=== PATIENT | female | born 1930 | race African-American/Black ===

== ENCOUNTER 2018-06-01 16:17 | Inpatient (IN) | payer MEDICARE, MEDICAID ==
[~2018-06-01] VITALS: Ht 165.1 cm; Wt 102.3 kg
[~2018-06-01 16:17] MED LIST: ACET-1465 PO; ACET-2178 PO; ALBUTEROL; AMLO10TA80 PO; ATOR20TA PO; ATRO0.05 IJ; FOLI-43 PO; GABA-531 PO; GUAI473S55 PO; LISI40TA4 PO; METO-539 PO; VITAMIN D
[2018-06-01] MEDS ORDERED: ONDANSETRON HCL 4MG/2ML INJ IV STA (16:42)
[2018-06-01] MEDS ORDERED: KETOROLAC 30MG/ML VIAL IV STA (16:42)
[2018-06-01] MEDS ORDERED: LEVE250T2 MT (17:05)
[2018-06-01] MEDS ORDERED: ALLO100T MT (17:05)
[2018-06-01] MEDS ORDERED: AMLO5TAB88 MT (17:05)
[2018-06-01 18:10] LABS: BASOPHILS % 0.6 % (0.0-2.0); CHLORIDE 109 mEq/L (98-107); EOSINOPHILS % 0.1 % (0.0-5.0); HEMATOCRIT. 44.3 % (36.0-48.0); HEMOGLOBIN. 14.4 g/dL (12.0-16.0); LYMPHOCYTES % 15.8 % (20.0-50.0); MEAN CORPUSCULAR HEMOGLOBIN 27.5 pg (28.0-32.0); MEAN CORPUSCULAR VOLUME 84.8 fL (81.0-99.0); MEAN PLATELET VOLUME 9.8 fl (7.4-10.4); MONOCYTES % 6.1 % (2.0-8.0); NEUTROPHILS % 77.4 % (40.0-76.0); PLATELET 200 x1000/uL (130-400); RED BLOOD CELL COUNT 5.22 mill/uL (4.2-5.4); RED CELL DISTRIBUTION WIDTH 16.2 % (11.6-14.6)
[2018-06-01 18:34] LABS: PARTIAL THROMBOPLASTIN TIME 27.5 sec (23.4-31.0); PROTHROMBIN TIME 10.1 sec (9.1-11.1)
[2018-06-01 23:15] VITALS: BP 148/61
[2018-06-01 23:30] VITALS: BP 148/61
[2018-06-02] MEDS ORDERED: MEDICATION NOT ON FORMULARY EA (Metoprolol Tartrate 1 TAB) PO SCH (00:30)
[2018-06-02] MEDS ORDERED: ONDANSETRON HCL 4MG/2ML INJ IV PRN (00:30)
[2018-06-02] MEDS ORDERED: ACETAMINOPHEN 325MG TABLET PO PRN ×2 (00:30→16:45)
[2018-06-02 04:00] VITALS: BP 127/51
[2018-06-02] MEDS ORDERED: MEDICATION NOT ON FORMULARY EA (Allopurinol 1 TAB) MT SCH (09:00)
[2018-06-02] MEDS ORDERED: MEDICATION NOT ON FORMULARY EA (Folic Acid 1 TAB) PO SCH (09:00)
[2018-06-02] MEDS ORDERED: MEDICATION NOT ON FORMULARY EA (Gabapentin 1 CAP) PO SCH (09:00)
[2018-06-02] MEDS ORDERED: AMLODIPINE 10MG TABLET PO SCH (09:00)
[2018-06-02] MEDS ORDERED: MEDICATION NOT ON FORMULARY EA (Amlodipine Besylate 1 TAB) MT SCH (09:00)
[2018-06-02] MEDS: GABAPENTIN 300MG CAPSULE PO SCH (09:34)
[2018-06-02] MEDS: FOLIC ACID 1MG TABLET PO SCH (09:35)
[2018-06-02] MEDS: LISINOPRIL 40MG TABLET PO SCH (09:36)
[2018-06-02] MEDS: LEVETIRACETAM 250MG TABLET PO SCH (09:36)
[2018-06-02] MEDS: METOPROLOL TARTRATE 50MG TABLET PO SCH ×2 (09:38→21:00)
[2018-06-02] MEDS: ALLOPURINOL 100 MG TABLET PO SCH (10:01)
[2018-06-02 12:10] VITALS: BP 132/49
[2018-06-02 16:11] VITALS: BP 102/53
[2018-06-02 20:00] VITALS: BP 125/48
[2018-06-02] MEDS: ATORVASTATIN CALCIUM 20MG TABLET PO SCH (21:00)
[2018-06-02] MEDS: AMLODIPINE 5MG TABLET PO SCH (21:00)
[2018-06-03] VITALS: BP 116/45
[2018-06-03 06:51] LABS: BASOPHILS % 0.3 % (0.0-2.0); EOSINOPHILS % 4.5 % (0.0-5.0); HEMATOCRIT. 37.7 % (36.0-48.0); HEMOGLOBIN. 12.4 g/dL (12.0-16.0); LYMPHOCYTES % 37.4 % (20.0-50.0); MEAN CORPUSCULAR VOLUME 85.2 fL (81.0-99.0); MEAN PLATELET VOLUME 9.9 fl (7.4-10.4); MONOCYTES % 8.4 % (2.0-8.0); NEUTROPHILS % 49.4 % (40.0-76.0); PLATELET 202 x1000/uL (130-400); RED BLOOD CELL COUNT 4.42 mill/uL (4.2-5.4); RED CELL DISTRIBUTION WIDTH 15.8 % (11.6-14.6)
[2018-06-03 08:00] VITALS: BP 101/96
[2018-06-03] MEDS: METOPROLOL TARTRATE 50MG TABLET PO SCH ×2 (09:00→20:52)
[2018-06-03] MEDS: AMLODIPINE 5MG TABLET PO SCH ×2 (09:00→20:53)
[2018-06-03] MEDS: LISINOPRIL 40MG TABLET PO SCH (09:00)
[2018-06-03] MEDS: ALLOPURINOL 100 MG TABLET PO SCH (09:44)
[2018-06-03] MEDS: FOLIC ACID 1MG TABLET PO SCH (09:44)
[2018-06-03] MEDS: LEVETIRACETAM 250MG TABLET PO SCH ×2 (09:44→17:30)
[2018-06-03] MEDS: GABAPENTIN 300MG CAPSULE PO SCH ×3 (09:44→17:30)
[2018-06-03] MEDS: ENOXAPARIN 40MG/0.4ML SYR SUBCUT SCH (09:47)
[2018-06-03 12:00] VITALS: BP 108/51
[2018-06-03] MEDS: TRAMADOL 50MG TABLET PO PRN (14:07)
[2018-06-03] MEDS: SODIUM CHLORIDE 0.45% 1,000 ML IV SCH (14:07)
[2018-06-03 16:00] VITALS: BP 109/59
[2018-06-03 20:00] VITALS: BP 109/39
[2018-06-03] MEDS: ATORVASTATIN CALCIUM 20MG TABLET PO SCH (20:54)
[2018-06-04] VITALS: BP 146/50
[2018-06-04] MEDS: SODIUM CHLORIDE 0.45% 1,000 ML IV SCH ×2 (01:57→15:07)
[2018-06-04 04:00] VITALS: BP 130/49
[2018-06-04 07:14] LABS: BASOPHILS % 0.2 % (0.0-2.0); EOSINOPHILS % 4.4 % (0.0-5.0); HEMATOCRIT. 37.1 % (36.0-48.0); HEMOGLOBIN. 11.9 g/dL (12.0-16.0); LYMPHOCYTES % 21.7 % (20.0-50.0); MEAN CORPUSCULAR HEMOGLOBIN 27.3 pg (28.0-32.0); MEAN CORPUSCULAR VOLUME 84.9 fL (81.0-99.0); MEAN PLATELET VOLUME 9.5 fl (7.4-10.4); MONOCYTES % 10.4 % (2.0-8.0); NEUTROPHILS % 63.3 % (40.0-76.0); PLATELET 204 x1000/uL (130-400); RED BLOOD CELL COUNT 4.37 mill/uL (4.2-5.4); RED CELL DISTRIBUTION WIDTH 15.3 % (11.6-14.6)
[2018-06-04 08:00] VITALS: BP 106/58
[2018-06-04] MEDS: METOPROLOL TARTRATE 50MG TABLET PO SCH ×2 (09:00→20:50)
[2018-06-04] MEDS: AMLODIPINE 5MG TABLET PO SCH ×2 (09:00→20:51)
[2018-06-04] MEDS: GABAPENTIN 300MG CAPSULE PO SCH ×3 (09:34→17:39)
[2018-06-04] MEDS: LEVETIRACETAM 250MG TABLET PO SCH ×2 (09:34→17:39)
[2018-06-04] MEDS: FOLIC ACID 1MG TABLET PO SCH (09:34)
[2018-06-04] MEDS: ALLOPURINOL 100 MG TABLET PO SCH (09:34)
[2018-06-04 12:00] VITALS: BP 110/72
[2018-06-04 12:40] LABS: CLARITY URINE CLOUDY (CLEAR); COLOR URINE DARK YELLOW (YELLOW); KETONES URINE NEGATIVE (NEGATIVE); LEUKOCYTE ESTERASE URINE 3+ (NEGATIVE); NITRITE URINE NEGATIVE (NEGATIVE); OCCULT BLOOD URINE 2+ (NEGATIVE); PROTEIN URINE NEGATIVE (NEGATIVE); SPECIFIC GRAVITY URINE 1.018 (1.005-1.030)
[2018-06-04] MEDS ORDERED: LEVOFLOXACIN 250MG PREMIX 50 ML IV SCH (15:00)
[2018-06-04] MEDS: BENZONATATE 100MG CAPSULE PO PRN (15:07)
[2018-06-04] MEDS: TRAMADOL 50MG TABLET PO PRN ×2 (15:07→20:55)
[2018-06-04 16:00] VITALS: BP 141/56
[2018-06-04] MEDS: ENOXAPARIN 40MG/0.4ML SYR SUBCUT SCH (17:39)
[2018-06-04 20:00] VITALS: BP 133/42
[2018-06-04] MEDS: GUAIFENESIN 600MG ER TABLET PO SCH (20:55)
[2018-06-04] MEDS: ATORVASTATIN CALCIUM 20MG TABLET PO SCH (20:55)
[2018-06-05] VITALS: BP 150/42
[2018-06-05 04:00] VITALS: BP 144/46
[2018-06-05] MEDS: SODIUM CHLORIDE 0.45% 1,000 ML IV SCH (06:01)
[2018-06-05 08:00] VITALS: BP_SYST 148; BP_SYST 172; BP_DIAS 60; BP_DIAS 68
[2018-06-05] MEDS: LEVETIRACETAM 250MG TABLET PO SCH ×2 (09:27→18:21)
[2018-06-05] MEDS: FOLIC ACID 1MG TABLET PO SCH (09:27)
[2018-06-05] MEDS: AMLODIPINE 5MG TABLET PO SCH ×2 (09:29→20:22)
[2018-06-05] MEDS: METOPROLOL TARTRATE 50MG TABLET PO SCH ×2 (09:30→20:22)
[2018-06-05] MEDS: GABAPENTIN 300MG CAPSULE PO SCH ×3 (09:30→18:20)
[2018-06-05 12:00] VITALS: BP 148/60
[2018-06-05] MEDS: TRAMADOL 50MG TABLET PO PRN (13:53)
[2018-06-05] MEDS: BENZONATATE 100MG CAPSULE PO PRN (13:53)
[2018-06-05] MEDS: ALLOPURINOL 100 MG TABLET PO SCH (14:00)
[2018-06-05] MEDS: GUAIFENESIN 600MG ER TABLET PO SCH ×2 (14:15→20:22)
[2018-06-05] MEDS ORDERED: LEVOFLOXACIN 250MG PREMIX 50 ML IV SCH (15:00)
[2018-06-05 16:00] VITALS: BP 131/80
[2018-06-05 17:07] LABS: BASOPHILS % 0.7 % (0.0-2.0); EOSINOPHILS % 4.9 % (0.0-5.0); HEMATOCRIT. 39.1 % (36.0-48.0); HEMOGLOBIN. 12.5 g/dL (12.0-16.0); LYMPHOCYTES % 23.2 % (20.0-50.0); MEAN CORPUSCULAR HEMOGLOBIN 27.4 pg (28.0-32.0); MEAN CORPUSCULAR VOLUME 85.5 fL (81.0-99.0); MEAN PLATELET VOLUME 10.7 fl (7.4-10.4); MONOCYTES % 6.8 % (2.0-8.0); NEUTROPHILS % 64.4 % (40.0-76.0); PLATELET 234 x1000/uL (130-400); RED BLOOD CELL COUNT 4.57 mill/uL (4.2-5.4); RED CELL DISTRIBUTION WIDTH 15.5 % (11.6-14.6)
[2018-06-05] MEDS: LOSARTAN POTASSIUM 25 MG TABLET PO SCH (18:21)
[2018-06-05] MEDS: ENOXAPARIN 40MG/0.4ML SYR SUBCUT SCH (18:23)
[2018-06-05 20:00] VITALS: BP 184/70
[2018-06-05] MEDS: ATORVASTATIN CALCIUM 20MG TABLET PO SCH (20:21)
[2018-06-05] MEDS: CLONIDINE 0.1MG TABLET PO PRN (23:08)
[2018-06-06] VITALS: BP 138/67
[2018-06-06] MEDS: SODIUM CHLORIDE 0.45% 1,000 ML IV SCH (03:52)
[2018-06-06 04:00] VITALS: BP 153/69
[2018-06-06 08:00] VITALS: BP 180/71
[2018-06-06] MEDS: LEVETIRACETAM 250MG TABLET PO SCH ×2 (09:16→17:48)
[2018-06-06] MEDS: METOPROLOL TARTRATE 50MG TABLET PO SCH ×2 (09:16→20:57)
[2018-06-06] MEDS: GABAPENTIN 300MG CAPSULE PO SCH ×3 (09:16→17:48)
[2018-06-06] MEDS: LOSARTAN POTASSIUM 25 MG TABLET PO SCH (09:16)
[2018-06-06] MEDS: AMLODIPINE 5MG TABLET PO SCH ×2 (09:16→20:56)
[2018-06-06] MEDS: GUAIFENESIN 600MG ER TABLET PO SCH ×2 (09:16→20:56)
[2018-06-06] MEDS: ALLOPURINOL 100 MG TABLET PO SCH (09:17)
[2018-06-06] MEDS: FOLIC ACID 1MG TABLET PO SCH (09:17)
[2018-06-06] MEDS: LEVOFLOXACIN 250MG TABLET PO SCH (10:34)
[2018-06-06 12:00] VITALS: BP 170/73
[2018-06-06 12:03] LABS: HEMATOCRIT. 43.8 % (36.0-48.0); HEMOGLOBIN. 13.9 g/dL (12.0-16.0); MEAN CORPUSCULAR HEMOGLOBIN 27.4 pg (28.0-32.0); RED BLOOD CELL COUNT 5.09 mill/uL (4.2-5.4); RED CELL DISTRIBUTION WIDTH 15.5 % (11.6-14.6)
[2018-06-06 12:58] LABS: PLATELET ESTIMATE NORMAL
[2018-06-06 12:59] LABS: MEAN PLATELET VOLUME 9.8 fl (7.4-10.4)
[2018-06-06 13:00] LABS: PLATELET 187 x1000/uL (130-400)
[2018-06-06] MEDS: CLONIDINE 0.1MG TABLET PO PRN (13:29)
[2018-06-06 16:00] VITALS: BP 153/79
[2018-06-06] MEDS: ENOXAPARIN 30MG/0.3ML SYR SUBCUT SCH ×2 (17:49→17:59)
[2018-06-06 20:00] VITALS: BP 147/57
[2018-06-06] MEDS: ATORVASTATIN CALCIUM 20MG TABLET PO SCH (20:56)
[2018-06-06 21:32] LABS: VITAMIN B12 SERUM 213 pg/mL (211-911)
[2018-06-07] VITALS (7 sets, daily range): BP systolic 134–162; BP diastolic 44–91
[2018-06-07] MEDS: ENOXAPARIN 30MG/0.3ML SYR SUBCUT SCH ×2 (05:27→17:55)
[2018-06-07] MEDS ORDERED: LOSARTAN POTASSIUM 25 MG TABLET PO SCH (09:00)
[2018-06-07] MEDS: LEVETIRACETAM 250MG TABLET PO SCH ×2 (09:17→17:55)
[2018-06-07] MEDS: GUAIFENESIN 600MG ER TABLET PO SCH ×2 (09:17→20:55)
[2018-06-07] MEDS: METOPROLOL TARTRATE 50MG TABLET PO SCH ×2 (09:17→20:55)
[2018-06-07] MEDS: AMLODIPINE 5MG TABLET PO SCH ×2 (09:17→20:55)
[2018-06-07] MEDS: GABAPENTIN 300MG CAPSULE PO SCH ×3 (09:17→17:55)
[2018-06-07] MEDS: ALLOPURINOL 100 MG TABLET PO SCH (09:17)
[2018-06-07] MEDS: FOLIC ACID 1MG TABLET PO SCH (09:18)
[2018-06-07] MEDS: LEVOFLOXACIN 250MG TABLET PO SCH (10:48)
[2018-06-07] MEDS: TRAMADOL 50MG TABLET PO PRN (13:07)
[2018-06-07] MEDS: CLONIDINE 0.1MG TABLET PO PRN (13:07)
[2018-06-07] MEDS: ATORVASTATIN CALCIUM 20MG TABLET PO SCH (20:55)
[2018-06-08 09:08] LABS: COMPLEMENT C3 137 mg/dL (82-167)
[2018-06-09 04:18] LABS: ANTI-NUCLEAR ANTIBODIES DIRECT Positive (Negative)
== END 2018-06-07 21:22 | disposition home health service (06) | DRG 553 ==
LOC: ER 16:17 → 8WST 20:24 → EDBEDREQTM 20:31 → EDBEDREQSVC 20:31 → EDBEDREQ 20:31 → EDBEDREQTM 21:40 → ENRESERV 22:08
PROVIDERS: ADMIT Internal Medicine; ATTEND Internal Medicine
PROC: 0S9C3ZZ Drainage of Right Knee Joint, Percutaneous Approach (ICD-10-PCS; principal; 2018-06-07)
PROC: 0S9D3ZZ Drainage of Left Knee Joint, Percutaneous Approach (ICD-10-PCS; 2018-06-07)
PROC: 3E0U33Z Introduction of Anti-inflammatory into Joints, Percutaneous Approach (ICD-10-PCS; 2018-06-07)
PROC: 3E0U3BZ Introduction of Anesthetic Agent into Joints, Percutaneous Approach (ICD-10-PCS; 2018-06-07)
DX: M17.11 Unilateral primary osteoarthritis, right knee (principal); N17.0 Acute kidney failure with tubular necrosis; E44.0 Moderate protein-calorie malnutrition; I50.22 Chronic systolic (congestive) heart failure; N39.0 Urinary tract infection, site not specified; I13.0 Hypertensive heart and chronic kidney disease with heart failure and stage 1 through stage 4 chronic kidney disease, or unspecified chronic kidney disease; I42.9 Cardiomyopathy, unspecified; J98.11 Atelectasis; M62.82 Rhabdomyolysis; N17.9 Acute kidney failure, unspecified; M25.461 Effusion, right knee; S82.401A Unspecified fracture of shaft of right fibula, initial encounter for closed fracture; I27.20 Pulmonary hypertension, unspecified; E66.01 Morbid (severe) obesity due to excess calories; E78.5 Hyperlipidemia, unspecified; E87.8 Other disorders of electrolyte and fluid balance, not elsewhere classified; F03.90 Unspecified dementia, unspecified severity, without behavioral disturbance, psychotic disturbance, mood disturbance, and anxiety; F17.210 Nicotine dependence, cigarettes, uncomplicated; G40.909 Epilepsy, unspecified, not intractable, without status epilepticus; I25.10 Atherosclerotic heart disease of native coronary artery without angina pectoris; S89.81XA Other specified injuries of right lower leg, initial encounter; J44.9 Chronic obstructive pulmonary disease, unspecified; L89.150 Pressure ulcer of sacral region, unstageable; N18.3 Chronic kidney disease, stage 3 (moderate); M16.11 Unilateral primary osteoarthritis, right hip; W06.XXXA Fall from bed, initial encounter; Z68.37 Body mass index [BMI] 37.0-37.9, adult; Z79.899 Other long term (current) drug therapy; Z95.0 Presence of cardiac pacemaker; Y93.89 Activity, other specified; Y92.092 Bedroom in other non-institutional residence as the place of occurrence of the external cause; Y99.8 Other external cause status; Z88.5 Allergy status to narcotic agent; Z88.0 Allergy status to penicillin; R73.9 Hyperglycemia, unspecified; I08.3 Combined rheumatic disorders of mitral, aortic and tricuspid valves
CPT/HCPCS: 36415; 71045; 73562; 76770; 80048; 82542; 82550; 82607; 83880; 84443; 84484; 86038; 86160; 87077; 87186; 92610; 93005; 93306; 93880; 96374; 96375; 97162; 97166; 97530; 99285; A6261; J1650; J1885; J1956; J2405; L1830; A4315

== ENCOUNTER 2018-10-02 16:17 | Inpatient (IN) | payer MEDICARE, MEDICAID ==
[~2018-10-02] VITALS: Ht 170.2 cm; Wt 94.3 kg
[~2018-10-02 16:17] MED LIST changes: -ACET-2178 PO; +ALLO100T MT; +AMLO5TAB88 MT; -ATRO0.05 IJ; -GUAI473S55 PO; +LEVE250T2 MT
[2018-10-02] MEDS ORDERED: SODIUM CHLORIDE 0.9% 1000ML BAG (SEPSIS BOLUS) IV ONE (16:45)
[2018-10-02] MEDS ORDERED: LEVOFLOXACIN 750MG PREMIX 150 ML IV ONE (16:45)
[2018-10-02 17:46] LABS: CLARITY URINE TURBID (CLEAR); COLOR URINE DARK YELLOW (YELLOW); KETONES URINE TRACE (NEGATIVE); LEUKOCYTE ESTERASE URINE 3+ (NEGATIVE); NITRITE URINE NEGATIVE (NEGATIVE); OCCULT BLOOD URINE 3+ (NEGATIVE); PROTEIN URINE 2+ (NEGATIVE); SPECIFIC GRAVITY URINE 1.015 (1.005-1.030)
[2018-10-02 18:40] LABS: HEMATOCRIT. 44.4 % (36.0-48.0); HEMOGLOBIN. 14.2 g/dL (12.0-16.0); MEAN CORPUSCULAR HEMOGLOBIN 26.4 pg (28.0-32.0); MEAN CORPUSCULAR VOLUME 82.9 fL (81.0-99.0); MEAN PLATELET VOLUME 9.6 fl (7.4-10.4); PLATELET 211 x1000/uL (130-400); RED BLOOD CELL COUNT 5.36 mill/uL (4.2-5.4); RED CELL DISTRIBUTION WIDTH 16.3 % (11.6-14.6)
[2018-10-02 18:45] LABS: CHLORIDE 114 mEq/L (98-107)
[2018-10-02 18:47] LABS: INR 1.1; PARTIAL THROMBOPLASTIN TIME 34.8 sec (23.4-31.0); PROTHROMBIN TIME 11.1 sec (9.1-11.1)
[2018-10-02] MEDS ORDERED: ASPIRIN 81MG TABLET PO ONE (19:30)
[2018-10-02 20:15] LABS: PLATELET ESTIMATE NORMAL
[2018-10-02 23:30] VITALS: BP 118/44
[2018-10-03] VITALS: BP 118/44
[2018-10-03] MEDS ORDERED: MAGNESIUM/ALUMINUM HYDROXIDE/SIMETHICONE 30ML UDC PO PRN
[2018-10-03] MEDS ORDERED: GUAIFENESIN 200MG/10ML SUGAR FREE UDC PO PRN
[2018-10-03] MEDS ORDERED: IPRATROPIUM/ALBUTEROL 0.5-3(2.5)MG/3ML NEB INH PRN
[2018-10-03] MEDS ORDERED: DIPHENHYDRAMINE 50MG/ML VIAL IV PRN
[2018-10-03] MEDS ORDERED: ONDANSETRON HCL 4MG/2ML INJ IV PRN
[2018-10-03] MEDS ORDERED: NA PHOS,M-B/NA PHOS,DI-BA ENEMA 118ML PR PRN
[2018-10-03] MEDS ORDERED: ACETAMINOPHEN 650MG/20.3ML UDC GT PRN
[2018-10-03] MEDS ORDERED: ACETAMINOPHEN 325MG TABLET PO PRN
[2018-10-03] MEDS ORDERED: DOCUSATE SODIUM 100MG CAPSULE PO PRN
[2018-10-03] MEDS ORDERED: ACETAMINOPHEN 650MG SUPP PR PRN
[2018-10-03] MEDS ORDERED: LEVOFLOXACIN 500MG PREMIX 100 ML IV SCH
[2018-10-03] MEDS ORDERED: CLONIDINE 0.1MG TABLET PO PRN
[2018-10-03] MEDS ORDERED: AZITHROMYCIN 500 MG in DEXT 5% WATER 250 ML IV SCH ×2
[2018-10-03] MEDS ORDERED: LOSA25TA12 PO (01:09)
[2018-10-03] MEDS: IPRATROPIUM/ALBUTEROL 0.5-3(2.5)MG/3ML NEB INH SCH ×3 (02:15→21:18)
[2018-10-03 04:00] VITALS: BP 130/46
[2018-10-03] MEDS: AZITHROMYCIN 500 MG in DEXT 5% WATER 250 ML IV SCH (04:59)
[2018-10-03 06:25] LABS: HEMATOCRIT. 43.2 % (36.0-48.0); MEAN CORPUSCULAR HEMOGLOBIN 26.8 pg (28.0-32.0); MEAN CORPUSCULAR VOLUME 82.8 fL (81.0-99.0); MEAN PLATELET VOLUME 10.5 fl (7.4-10.4); PLATELET 193 x1000/uL (130-400); RED BLOOD CELL COUNT 5.21 mill/uL (4.2-5.4); RED CELL DISTRIBUTION WIDTH 16.2 % (11.6-14.6)
[2018-10-03] MEDS: SODIUM CHLORIDE 0.9% INJ 3ML FLUSH IVF SCH ×3 (06:26→21:13)
[2018-10-03 06:51] LABS: CHLORIDE 113 mEq/L (98-107)
[2018-10-03 07:01] LABS: LDL CHOLESTEROL 49 mg/dL (5-100)
[2018-10-03 07:03] LABS: HDL CHOLESTEROL 19 mg/dL (40-59)
[2018-10-03 08:00] VITALS: BP 117/55
[2018-10-03] MEDS: ENOXAPARIN 30MG/0.3ML SYR SUBCUT SCH (09:55)
[2018-10-03 10:24] LABS: *AMPHETAMINES SCREEN URINE NEGATIVE (NEGATIVE); *BARBITURATES SCREEN URINE NEGATIVE (NEGATIVE); *BENZODIAZEPINES SCREEN URINE NEGATIVE (NEGATIVE); *COCAINE SCREEN URINE NEGATIVE (NEGATIVE); CANNABINOID URINE SCREEN NEGATIVE (NEGATIVE); METHADONE URINE SCREEN NEGATIVE (NEGATIVE); OPIATES URINE SCREEN NEGATIVE (NEGATIVE); PHENCYCLIDINE URINE SCREEN NEGATIVE (NEGATIVE)
[2018-10-03 12:00] VITALS: BP 124/55
[2018-10-03 16:00] VITALS: BP 110/52
[2018-10-03] MEDS: LEVOFLOXACIN 250MG PREMIX 50 ML IV SCH (16:08)
[2018-10-03 20:00] VITALS: BP 133/61
[2018-10-03] MEDS ORDERED: MEDICATION NOT ON FORMULARY EA (Allopurinol 1 TAB) MT SCH (21:45)
[2018-10-03] MEDS ORDERED: MEDICATION NOT ON FORMULARY EA (Gabapentin 1 CAP) PO SCH (21:45)
[2018-10-03] MEDS ORDERED: MEDICATION NOT ON FORMULARY EA (Folic Acid 1 TAB) PO SCH (21:45)
[2018-10-04] VITALS (7 sets, daily range): BP systolic 109–141; BP diastolic 40–80
[2018-10-04] MEDS: SODIUM CHLORIDE 0.9% 1,000 ML IV SCH ×2 (00:03→11:05)
[2018-10-04] MEDS: FOLIC ACID 1MG TABLET PO SCH ×2 (00:04→09:22)
[2018-10-04] MEDS: ALLOPURINOL 100 MG TABLET PO SCH ×2 (00:04→09:22)
[2018-10-04] MEDS: ATORVASTATIN CALCIUM 20MG TABLET PO SCH ×2 (00:04→21:12)
[2018-10-04] MEDS: LEVETIRACETAM 250MG TABLET PO SCH ×3 (00:04→17:00)
[2018-10-04] MEDS: GABAPENTIN 300MG CAPSULE PO SCH ×4 (00:04→17:00)
[2018-10-04] MEDS: AZITHROMYCIN 500 MG in DEXT 5% WATER 250 ML IV SCH (06:15)
[2018-10-04] MEDS: SODIUM CHLORIDE 0.9% INJ 3ML FLUSH IVF SCH ×3 (06:15→21:12)
[2018-10-04 06:48] LABS: BASOPHILS % 0.1 % (0.0-2.0); HEMATOCRIT. 36.3 % (36.0-48.0); HEMOGLOBIN. 11.6 g/dL (12.0-16.0); LYMPHOCYTES % 14.9 % (20.0-50.0); MEAN CORPUSCULAR HEMOGLOBIN 26.4 pg (28.0-32.0); MEAN CORPUSCULAR VOLUME 82.5 fL (81.0-99.0); MEAN PLATELET VOLUME 9.9 fl (7.4-10.4); MONOCYTES % 8.1 % (2.0-8.0); NEUTROPHILS % 76.9 % (40.0-76.0); PLATELET 208 x1000/uL (130-400)
[2018-10-04] MEDS: ENOXAPARIN 30MG/0.3ML SYR SUBCUT SCH (09:21)
[2018-10-04] MEDS: IPRATROPIUM/ALBUTEROL 0.5-3(2.5)MG/3ML NEB INH SCH ×3 (10:01→20:46)
[2018-10-04] MEDS ORDERED: LEVO500T2 MT (15:23)
[2018-10-04] MEDS: LEVOFLOXACIN 250MG PREMIX 50 ML IV SCH (16:57)
[2018-10-04 17:44] LABS: PLATELET ESTIMATE NORMAL
[2018-10-05] VITALS: BP 128/48
[2018-10-05] MEDS: IPRATROPIUM/ALBUTEROL 0.5-3(2.5)MG/3ML NEB INH SCH ×4 (01:04→20:17)
[2018-10-05] MEDS: SODIUM CHLORIDE 0.9% 1,000 ML IV SCH ×2 (01:47→21:17)
[2018-10-05 04:00] VITALS: BP 130/57
[2018-10-05] MEDS: AZITHROMYCIN 500 MG in DEXT 5% WATER 250 ML IV SCH (06:15)
[2018-10-05] MEDS: SODIUM CHLORIDE 0.9% INJ 3ML FLUSH IVF SCH ×3 (06:15→21:16)
[2018-10-05 06:49] LABS: HEMATOCRIT. 36.7 % (36.0-48.0); HEMOGLOBIN. 11.6 g/dL (12.0-16.0); MEAN CORPUSCULAR HEMOGLOBIN 26.3 pg (28.0-32.0); MEAN CORPUSCULAR VOLUME 83.3 fL (81.0-99.0); MEAN PLATELET VOLUME 9.6 fl (7.4-10.4); PLATELET 234 x1000/uL (130-400); RED BLOOD CELL COUNT 4.41 mill/uL (4.2-5.4); RED CELL DISTRIBUTION WIDTH 16.7 % (11.6-14.6)
[2018-10-05 08:30] VITALS: BP 122/64
[2018-10-05] MEDS: LEVETIRACETAM 250MG TABLET PO SCH ×2 (09:09→16:08)
[2018-10-05] MEDS: ALLOPURINOL 100 MG TABLET PO SCH (09:09)
[2018-10-05] MEDS: GABAPENTIN 300MG CAPSULE PO SCH ×3 (09:09→16:08)
[2018-10-05] MEDS: FOLIC ACID 1MG TABLET PO SCH (09:09)
[2018-10-05] MEDS: ENOXAPARIN 30MG/0.3ML SYR SUBCUT SCH (09:10)
[2018-10-05 12:00] VITALS: BP 121/59
[2018-10-05 13:15] LABS: NUCLEATED RED BLOOD CELLS 1 /100 WBC; PLATELET ESTIMATE NORMAL
[2018-10-05 13:38] LABS: CREATINE KINASE 179 IU/L (26-192)
[2018-10-05] MEDS: CITRIC ACID/SODIUM CITRATE SOLN 15ML UDC PO SCH ×2 (13:46→21:16)
[2018-10-05 14:59] LABS: BG BASE EXCESS -4.2 mmol/L (-2.0-2.0); BG CARBOXYHEMOGLOBIN 0.7 % (0.5-1.5); BG DEOXYHEMOGLOBIN 11.4 % (0.0-5.0); BG HCO3 ACT 19.8 mmol/L (22.0-26.0); BG METHEMOGLOBIN 0.1 % (0.0-1.5); BG OXYGEN SATURATION 88.5 % (92.0-98.5); BG OXYHEMOGLOBIN 87.8 % (94.0-97.0); BG PCO2 32.7 mmHg (35.0-45.0); BG PH 7.399 (7.350-7.450); BG PO2 54.8 mmHg (75.0-100.0); BG SAMPLE SITE RIGHT BRACHIAL; BG TOTAL HEMOGLOBIN 12.3 g/dL (12.0-18.0); BG VENT MODE ROOM AIR
[2018-10-05] MEDS: LEVOFLOXACIN 250MG PREMIX 50 ML IV SCH (15:58)
[2018-10-05 16:00] VITALS: BP 122/59
[2018-10-05 20:00] VITALS: BP 131/55
[2018-10-05] MEDS: ATORVASTATIN CALCIUM 20MG TABLET PO SCH (21:17)
[2018-10-06] VITALS: BP 119/45
[2018-10-06] MEDS: IPRATROPIUM/ALBUTEROL 0.5-3(2.5)MG/3ML NEB INH SCH ×3 (00:48→20:12)
[2018-10-06 04:00] VITALS: BP 124/59
[2018-10-06] MEDS: SODIUM CHLORIDE 0.9% INJ 3ML FLUSH IVF SCH ×3 (06:00→21:23)
[2018-10-06] MEDS: CITRIC ACID/SODIUM CITRATE SOLN 15ML UDC PO SCH ×3 (06:00→21:22)
[2018-10-06 07:16] LABS: HEMATOCRIT. 34.4 % (36.0-48.0); HEMOGLOBIN. 11.2 g/dL (12.0-16.0); MEAN CORPUSCULAR HEMOGLOBIN 26.8 pg (28.0-32.0); MEAN CORPUSCULAR VOLUME 82.2 fL (81.0-99.0); MEAN PLATELET VOLUME 9.5 fl (7.4-10.4); PLATELET 264 x1000/uL (130-400); RED BLOOD CELL COUNT 4.19 mill/uL (4.2-5.4); RED CELL DISTRIBUTION WIDTH 15.9 % (11.6-14.6)
[2018-10-06 08:00] VITALS: BP 103/55
[2018-10-06] MEDS: ALLOPURINOL 100 MG TABLET PO SCH (09:45)
[2018-10-06] MEDS: LEVETIRACETAM 250MG TABLET PO SCH ×2 (09:45→16:50)
[2018-10-06] MEDS: FOLIC ACID 1MG TABLET PO SCH (09:45)
[2018-10-06] MEDS: AZITHROMYCIN 500 MG TABLET PO SCH (09:45)
[2018-10-06] MEDS: GABAPENTIN 300MG CAPSULE PO SCH ×3 (09:45→16:50)
[2018-10-06] MEDS: ENOXAPARIN 30MG/0.3ML SYR SUBCUT SCH (09:46)
[2018-10-06 12:00] VITALS: BP 147/55
[2018-10-06 13:33] LABS: PLATELET ESTIMATE NORMAL
[2018-10-06] MEDS: SODIUM CHLORIDE 0.9% 1,000 ML IV SCH (14:14)
[2018-10-06 16:00] VITALS: BP 149/54
[2018-10-06] MEDS: LEVOFLOXACIN 250MG TABLET PO SCH (16:50)
[2018-10-06 18:27] LABS: HEMATOCRIT 35.8 % (36.0-48.0); HEMOGLOBIN 11.5 g/dL (12.0-16.0); MEAN CORPUSCULAR HEMOGLOBIN 26.5 pg (28.0-32.0); MEAN CORPUSCULAR VOLUME 82.7 fL (81.0-99.0); PLATELET 216 x1000/uL (130-400); RED BLOOD CELL COUNT 4.33 mill/uL (4.2-5.4); RED CELL DISTRIBUTION WIDTH 16.5 % (11.6-14.6)
[2018-10-06 20:00] VITALS: BP 149/43
[2018-10-06] MEDS: ATORVASTATIN CALCIUM 20MG TABLET PO SCH (21:22)
[2018-10-07] VITALS: BP 122/47
[2018-10-07] MEDS: SODIUM CHLORIDE 0.9% 1,000 ML IV SCH ×3 (00:46→21:43)
[2018-10-07] MEDS: IPRATROPIUM/ALBUTEROL 0.5-3(2.5)MG/3ML NEB INH SCH ×4 (01:59→21:27)
[2018-10-07 04:00] VITALS: BP 124/42
[2018-10-07] MEDS: CITRIC ACID/SODIUM CITRATE SOLN 15ML UDC PO SCH ×3 (06:35→21:43)
[2018-10-07] MEDS: SODIUM CHLORIDE 0.9% INJ 3ML FLUSH IVF SCH ×2 (06:35→14:07)
[2018-10-07 08:00] VITALS: BP 143/58
[2018-10-07] MEDS: FOLIC ACID 1MG TABLET PO SCH (09:16)
[2018-10-07] MEDS: AZITHROMYCIN 500 MG TABLET PO SCH (09:16)
[2018-10-07] MEDS: ENOXAPARIN 30MG/0.3ML SYR SUBCUT SCH (09:16)
[2018-10-07] MEDS: ALLOPURINOL 100 MG TABLET PO SCH (09:16)
[2018-10-07] MEDS: GABAPENTIN 300MG CAPSULE PO SCH ×3 (09:16→17:01)
[2018-10-07] MEDS: LEVETIRACETAM 250MG TABLET PO SCH ×2 (09:16→17:01)
[2018-10-07 12:00] VITALS: BP 118/58
[2018-10-07 16:00] VITALS: BP 140/61
[2018-10-07] MEDS: LEVOFLOXACIN 250MG TABLET PO SCH (17:01)
[2018-10-07] MEDS: ATORVASTATIN CALCIUM 20MG TABLET PO SCH (21:43)
[2018-10-08] VITALS: BP 143/52
[2018-10-08] MEDS: IPRATROPIUM/ALBUTEROL 0.5-3(2.5)MG/3ML NEB INH SCH ×4 (03:02→22:27)
[2018-10-08 04:00] VITALS: BP 136/59
[2018-10-08] MEDS: CITRIC ACID/SODIUM CITRATE SOLN 15ML UDC PO SCH ×3 (06:41→21:34)
[2018-10-08] MEDS: SODIUM CHLORIDE 0.9% INJ 3ML FLUSH IVF SCH ×4 (06:41→21:35)
[2018-10-08 06:48] LABS: HEMATOCRIT. 34.7 % (36.0-48.0); HEMOGLOBIN. 11.2 g/dL (12.0-16.0); MEAN CORPUSCULAR HEMOGLOBIN 26.5 pg (28.0-32.0); MEAN CORPUSCULAR VOLUME 82.4 fL (81.0-99.0); PLATELET 288 x1000/uL (130-400); RED BLOOD CELL COUNT 4.21 mill/uL (4.2-5.4); RED CELL DISTRIBUTION WIDTH 16.3 % (11.6-14.6)
[2018-10-08 08:00] VITALS: BP 150/52
[2018-10-08] MEDS: AZITHROMYCIN 500 MG TABLET PO SCH (09:24)
[2018-10-08] MEDS: GABAPENTIN 300MG CAPSULE PO SCH ×3 (09:24→18:19)
[2018-10-08] MEDS: LEVETIRACETAM 250MG TABLET PO SCH ×2 (09:24→18:19)
[2018-10-08] MEDS: ENOXAPARIN 30MG/0.3ML SYR SUBCUT SCH (09:24)
[2018-10-08] MEDS: ALLOPURINOL 100 MG TABLET PO SCH (09:24)
[2018-10-08] MEDS: FOLIC ACID 1MG TABLET PO SCH (09:24)
[2018-10-08] MEDS: SODIUM CHLORIDE 0.9% 1,000 ML IV SCH ×2 (09:24→20:06)
[2018-10-08 12:00] VITALS: BP 143/57
[2018-10-08 12:50] LABS: PLATELET ESTIMATE NORMAL
[2018-10-08 16:00] VITALS: BP 173/56
[2018-10-08] MEDS: LEVOFLOXACIN 250MG TABLET PO SCH (18:19)
[2018-10-08 20:00] VITALS: BP 157/54
[2018-10-08] MEDS: ATORVASTATIN CALCIUM 20MG TABLET PO SCH (21:34)
[2018-10-09] VITALS: BP 139/51
[2018-10-09 04:00] VITALS: BP 148/50
[2018-10-09] MEDS: SODIUM CHLORIDE 0.9% INJ 3ML FLUSH IVF SCH ×3 (06:46→21:29)
[2018-10-09] MEDS: CITRIC ACID/SODIUM CITRATE SOLN 15ML UDC PO SCH ×3 (06:46→21:29)
[2018-10-09 08:00] VITALS: BP 144/54
[2018-10-09] MEDS: IPRATROPIUM/ALBUTEROL 0.5-3(2.5)MG/3ML NEB INH SCH ×3 (08:36→20:29)
[2018-10-09] MEDS: LEVETIRACETAM 250MG TABLET PO SCH ×2 (09:24→17:51)
[2018-10-09] MEDS: GABAPENTIN 300MG CAPSULE PO SCH ×3 (09:24→17:51)
[2018-10-09] MEDS: ENOXAPARIN 40MG/0.4ML SYR SUBCUT SCH (09:24)
[2018-10-09] MEDS: FOLIC ACID 1MG TABLET PO SCH (09:24)
[2018-10-09] MEDS: AZITHROMYCIN 500 MG TABLET PO SCH (09:24)
[2018-10-09] MEDS: ALLOPURINOL 100 MG TABLET PO SCH (09:24)
[2018-10-09 12:00] VITALS: BP 145/63
[2018-10-09] MEDS: SODIUM CHLORIDE 0.9% 1,000 ML IV SCH (12:13)
[2018-10-09 14:37] LABS: BG BASE EXCESS -1.1 mmol/L (-2.0-2.0); BG CARBOXYHEMOGLOBIN 1.5 % (0.5-1.5); BG DEOXYHEMOGLOBIN 13.4 % (0.0-5.0); BG FRACTION INSPIRED OXYGEN 21; BG HCO3 ACT 21.2 mmol/L (22.0-26.0); BG METHEMOGLOBIN 0.3 % (0.0-1.5); BG OXYGEN SATURATION 86.4 % (92.0-98.5); BG OXYHEMOGLOBIN 84.8 % (94.0-97.0); BG PCO2 28.1 mmHg (35.0-45.0); BG PH 7.496 (7.350-7.450); BG PO2 49.9 mmHg (75.0-100.0); BG SAMPLE SITE RIGHT BRACHIAL; BG TOTAL HEMOGLOBIN 11.5 g/dL (12.0-18.0); BG VENT MODE ROOM AIR
[2018-10-09 16:00] VITALS: BP 144/60
[2018-10-09] MEDS: LEVOFLOXACIN 250MG TABLET PO SCH (17:51)
[2018-10-09 20:00] VITALS: BP 150/56
[2018-10-09] MEDS: ATORVASTATIN CALCIUM 20MG TABLET PO SCH (21:29)
[2018-10-10] VITALS: BP 137/56
[2018-10-10] MEDS: IPRATROPIUM/ALBUTEROL 0.5-3(2.5)MG/3ML NEB INH SCH ×4 (01:48→21:19)
[2018-10-10 04:00] VITALS: BP 123/47
[2018-10-10] MEDS: SODIUM CHLORIDE 0.9% INJ 3ML FLUSH IVF SCH ×3 (06:11→21:22)
[2018-10-10] MEDS: CITRIC ACID/SODIUM CITRATE SOLN 15ML UDC PO SCH ×3 (06:11→21:22)
[2018-10-10 06:34] LABS: BASOPHILS % 0.3 % (0.0-2.0); EOSINOPHILS % 0.5 % (0.0-5.0); HEMATOCRIT. 34.5 % (36.0-48.0); HEMOGLOBIN. 11.4 g/dL (12.0-16.0); LYMPHOCYTES % 13.9 % (20.0-50.0); MEAN CORPUSCULAR HEMOGLOBIN 27.2 pg (28.0-32.0); MEAN CORPUSCULAR VOLUME 82.6 fL (81.0-99.0); NEUTROPHILS % 74.3 % (40.0-76.0); RED BLOOD CELL COUNT 4.17 mill/uL (4.2-5.4); RED CELL DISTRIBUTION WIDTH 15.6 % (11.6-14.6)
[2018-10-10 07:42] LABS: PLATELET 274 x1000/uL (130-400)
[2018-10-10 08:00] VITALS: BP 143/57
[2018-10-10] MEDS: ALLOPURINOL 100 MG TABLET PO SCH (09:32)
[2018-10-10] MEDS: GABAPENTIN 300MG CAPSULE PO SCH ×3 (09:32→18:22)
[2018-10-10] MEDS: LEVETIRACETAM 250MG TABLET PO SCH ×2 (09:32→18:22)
[2018-10-10] MEDS: AZITHROMYCIN 500 MG TABLET PO SCH (09:32)
[2018-10-10] MEDS: FOLIC ACID 1MG TABLET PO SCH (09:32)
[2018-10-10] MEDS: ENOXAPARIN 40MG/0.4ML SYR SUBCUT SCH (09:33)
[2018-10-10 12:00] VITALS: BP 141/50
[2018-10-10] MEDS: SODIUM CHLORIDE 0.9% 1,000 ML IV SCH (12:50)
[2018-10-10 16:00] VITALS: BP 126/44
[2018-10-10] MEDS: LEVOFLOXACIN 250MG TABLET PO SCH (18:22)
[2018-10-10 20:00] VITALS: BP 132/54
[2018-10-10] MEDS: ATORVASTATIN CALCIUM 20MG TABLET PO SCH (21:22)
[2018-10-11] VITALS: BP 133/59
[2018-10-11] MEDS: IPRATROPIUM/ALBUTEROL 0.5-3(2.5)MG/3ML NEB INH SCH ×3 (01:00→20:37)
[2018-10-11 04:00] VITALS: BP 130/49
[2018-10-11] MEDS: SODIUM CHLORIDE 0.9% INJ 3ML FLUSH IVF SCH ×3 (05:00→21:33)
[2018-10-11] MEDS: CITRIC ACID/SODIUM CITRATE SOLN 15ML UDC PO SCH ×3 (05:00→21:33)
[2018-10-11 06:47] LABS: BASOPHILS % 0.4 % (0.0-2.0); EOSINOPHILS % 0.5 % (0.0-5.0); HEMOGLOBIN. 10.1 g/dL (12.0-16.0); LYMPHOCYTES % 14.8 % (20.0-50.0); MEAN CORPUSCULAR HEMOGLOBIN 26.9 pg (28.0-32.0); MEAN CORPUSCULAR VOLUME 82.5 fL (81.0-99.0); MEAN PLATELET VOLUME 8.7 fl (7.4-10.4); MONOCYTES % 8.4 % (2.0-8.0); NEUTROPHILS % 75.9 % (40.0-76.0); PLATELET 320 x1000/uL (130-400); RED BLOOD CELL COUNT 3.75 mill/uL (4.2-5.4)
[2018-10-11 08:00] VITALS: BP 138/46
[2018-10-11] MEDS: FOLIC ACID 1MG TABLET PO SCH (09:43)
[2018-10-11] MEDS: GABAPENTIN 300MG CAPSULE PO SCH ×3 (09:43→17:36)
[2018-10-11] MEDS: LEVETIRACETAM 250MG TABLET PO SCH ×2 (09:43→17:36)
[2018-10-11] MEDS: ALLOPURINOL 100 MG TABLET PO SCH (09:43)
[2018-10-11] MEDS: ENOXAPARIN 40MG/0.4ML SYR SUBCUT SCH (09:44)
[2018-10-11 12:00] VITALS: BP 125/48
[2018-10-11 16:00] VITALS: BP 146/57
[2018-10-11 20:00] VITALS: BP 90/50
[2018-10-11] MEDS: ATORVASTATIN CALCIUM 20MG TABLET PO SCH (21:33)
[2018-10-12 00:56] VITALS: BP 123/54
[2018-10-12] MEDS: IPRATROPIUM/ALBUTEROL 0.5-3(2.5)MG/3ML NEB INH SCH ×3 (01:00→14:23)
[2018-10-12 04:00] VITALS: BP 145/43
[2018-10-12] MEDS: CITRIC ACID/SODIUM CITRATE SOLN 15ML UDC PO SCH ×2 (05:44→14:00)
[2018-10-12] MEDS: SODIUM CHLORIDE 0.9% INJ 3ML FLUSH IVF SCH ×2 (05:44→14:00)
[2018-10-12 08:00] VITALS: BP 152/56
[2018-10-12] MEDS: LEVETIRACETAM 250MG TABLET PO SCH ×2 (09:34→17:00)
[2018-10-12] MEDS: FOLIC ACID 1MG TABLET PO SCH (09:34)
[2018-10-12] MEDS: ALLOPURINOL 100 MG TABLET PO SCH (09:35)
[2018-10-12] MEDS: GABAPENTIN 300MG CAPSULE PO SCH ×3 (09:35→17:00)
[2018-10-12] MEDS: ENOXAPARIN 40MG/0.4ML SYR SUBCUT SCH (09:38)
[2018-10-12 10:23] LABS: BG BASE EXCESS -0.4 mmol/L (-2.0-2.0); BG CARBOXYHEMOGLOBIN 0.6 % (0.5-1.5); BG DEOXYHEMOGLOBIN 14.3 % (0.0-5.0); BG HCO3 ACT 22.7 mmol/L (22.0-26.0); BG METHEMOGLOBIN 0.3 % (0.0-1.5); BG OXYGEN SATURATION 85.6 % (92.0-98.5); BG OXYHEMOGLOBIN 84.8 % (94.0-97.0); BG PH 7.468 (7.350-7.450); BG PO2 50.5 mmHg (75.0-100.0); BG SAMPLE SITE LEFT BRACHIAL; BG TOTAL HEMOGLOBIN 11.4 g/dL (12.0-18.0); BG VENT MODE ROOM AIR
[2018-10-12 12:00] VITALS: BP 134/53
[2018-10-12] MEDS ORDERED: ASPIRIN 81MG EC TABLET PO SCH (15:00)
[2018-10-12 16:00] VITALS: BP 132/60
[2018-10-12 18:23] VITALS: BP 132/60
== END 2018-10-12 20:30 | disposition home health service (06) | DRG 871 ==
LOC: ER 16:17 → 5WST 19:45 → ENRESERV 22:26
PROVIDERS: ADMIT Internal Medicine Nephrology; ATTEND Internal Medicine Nephrology
DX: A41.9 Sepsis, unspecified organism (principal); G93.41 Metabolic encephalopathy; J18.9 Pneumonia, unspecified organism; E43 Unspecified severe protein-calorie malnutrition; J96.00 Acute respiratory failure, unspecified whether with hypoxia or hypercapnia; N17.0 Acute kidney failure with tubular necrosis; N39.0 Urinary tract infection, site not specified; E87.2 Acidosis; J44.0 Chronic obstructive pulmonary disease with (acute) lower respiratory infection; I70.201 Unspecified atherosclerosis of native arteries of extremities, right leg; L89.210 Pressure ulcer of right hip, unstageable; G31.9 Degenerative disease of nervous system, unspecified; I25.10 Atherosclerotic heart disease of native coronary artery without angina pectoris; I10 Essential (primary) hypertension; N20.0 Calculus of kidney; E87.8 Other disorders of electrolyte and fluid balance, not elsewhere classified; I45.10 Unspecified right bundle-branch block; G40.909 Epilepsy, unspecified, not intractable, without status epilepticus; I08.3 Combined rheumatic disorders of mitral, aortic and tricuspid valves; R74.0 Nonspecific elevation of levels of transaminase and lactic acid dehydrogenase [LDH]; B96.20 Unspecified Escherichia coli [E. coli] as the cause of diseases classified elsewhere; F03.90 Unspecified dementia, unspecified severity, without behavioral disturbance, psychotic disturbance, mood disturbance, and anxiety; E78.5 Hyperlipidemia, unspecified; E66.9 Obesity, unspecified; I12.9 Hypertensive chronic kidney disease with stage 1 through stage 4 chronic kidney disease, or unspecified chronic kidney disease; N18.9 Chronic kidney disease, unspecified; Z91.81 History of falling; Z88.0 Allergy status to penicillin; Z95.0 Presence of cardiac pacemaker; Z87.440 Personal history of urinary (tract) infections; Z72.0 Tobacco use; Z68.32 Body mass index [BMI] 32.0-32.9, adult; Z88.5 Allergy status to narcotic agent; Z71.6 Tobacco abuse counseling
CPT/HCPCS: 36415; 36600; 71045; 76770; 80048; 80061; 80305; 82375; 82550; 82805; 83036; 83605; 84134; 84145; 84484; 85027; 87077; 87186; 93005; 93306; 93923; 93970; 94640; 96365; 96375; 97162; 97530; 99291; A6261; J0456; J1650; J1956; J7030; J7040; J7060; J7620